=== PATIENT | male | born 1975 | race Caucasian/White ===

== ENCOUNTER 2018-06-18 16:24 | Inpatient (IN) | payer OTHER ==
[2018-06-18 16:43] VITALS: BMI 29.5
--- NOTE | 2018-06-18 16:48 | PDOC ---
Rapid Medical Evaluation Chief Complaint: Pain, Acute Time Seen by Provider: 06/18/18 16:41 Medical Evaluation: Allergies Allergy/AdvReac Type Severity Reaction Status Date / Time cat dander Allergy Verified 06/18/18 16:44 Vital Signs Temp Pulse Resp BP Pulse Ox 99.2 F 106 H 18 124/77 100 06/18/18 16:41 06/18/18 16:41 06/18/18 16:41 06/18/18 16:41 06/18/18 16:41 06/18/18 16:45 I have performed a brief in-person evaluation of this patient. The patient presents with a chief complaint of: sent by PCP to r/o epi. Pt with 3 days h/o fredrick-umbilical and RLQ pain x 3 days with fever. Denies N/V, diarrhea , constipation. report labs done in PCP office today at clinic at [facility] Pertinent physical exam findings: mild RLQ tenderness w/o gaurding. no acute distress I have ordered the following: abd/pelvis CT The patient will proceed to the ED for further evaluation. Discharge Disposition - Diagnosis Abdominal pain Qualifiers: Abdominal location: right lower quadrant Qualified Code(s): R10.31 - Right lower quadrant pain - Discharge Dispostion Condition at time of disposition: Stable - Referrals Referrals: Jesus Lang MD [Primary Care Provider] - - Patient Instructions - Post Discharge Activity
[2018-06-18] MEDS ORDERED: SODIUM CHLORIDE 1,000 ML IV STA (17:29)
[2018-06-18] MEDS ORDERED: ACETAMINOPHEN 1000 MG/100 ML VIAL (NON FORMULARY) IVPB ONE (17:29)
[2018-06-18] MEDS ORDERED: ACETAMINOPHEN INJECTION 100 ML IVPB ONE (17:39)
[2018-06-18 18:11] LABS: HEMATOCRIT 42.4 % (35.4-49); HEMOGLOBIN 14.3 GM/dL (11.7-16.9); MCHC 33.7 g/dl (32.0-35.9); MEAN PLT VOLUME 10.4 fl (7.5-11.1); PLATELET COUNT 195 K/MM3 (134-434); RBC 4.77 M/mm3 (4.00-5.60); RDW 13.9 % (11.9-15.9); WHITE BLOOD COUNT 13.6 K/mm3 (4.0-10.0)
--- NOTE | 2018-06-18 18:13 | PDOC ---
Attending Attestation - HPI HPI: 06/18/18 18:14 The patient is a 43 year old male, with a significant past medical history of palpitations and HLD, who presents to the emergency department with, 3 days of suprapubic pain now radiating to the RLQ with fever. Patient saw his PCP, Dr. Lang, prior to his arrival at which time he received bloodwork and was advised to report to the ED for a CT scan of the abdomen. He denies any testicular pain or penile discharge. He denies any recent headache or dizziness. He denies any recent nausea, vomit, diarrhea or constipation. He denies any recent chest pain or shortness of breath. He denies any recent dysuria, frequency, urgency or hematuria. Allergies: NKDA Past surgical history: None reported. Social History: Nonsmoker. Denies EtOH use and recreational drug use. Primary Care Physician: Dr. Jesus Lang <Jamil Ruiz - Last Filed: 06/18/18 18:15> - Resident Resident Name: Patricia Harris - ED Attending Attestation I have performed the following: I have examined & evaluated the patient, The case was reviewed & discussed with the resident, I agree w/resident's findings & plan, Exceptions are as noted - Physicial Exam PE: 06/18/18 19:57 exam: general: no acute distress abd: +rebound/ voluntary guarding, diffuse ttp lower abd - Medical Decision Making 06/18/18 18:11 43y pmhx palpitations, HL, presents from PMDs office for worsening 2 days of abdominal pain that is pressure like radiating to the RLQ, endorses associated fever/chills. As outpatient, had blood work with elevated WBC of 12. exam consistent withfocal peritonitis ddx likely appendicitis vs diverticulitis 06/18/18 19:57 ct suggestive of acute diverticulitis will start abx as pts pain is controlled,consider outpatient management with abx <Kurt Fernandez - Last Filed: 06/18/18 20:49> Attestations - Attestations 06/18/18 18:15 Documentation prepared by Jamil Ruiz, acting as medical educator for Kurt Fernandez MD. <Jamil Ruiz - Last Filed: 06/18/18 18:15>
[2018-06-18 18:23] LABS: INR 1.13 (0.83-1.09); PROTHROMBIN TIME (PATIENT) 13.4 SEC (9.7-13.0)
[2018-06-18 18:28] LABS: ALBUMIN 3.9 g/dl (3.4-5.0); ALK PHOS 74 U/L (45-117); ANION GAP 10 MMOL/L (8-16); BILIRUBIN,TOTAL 0.6 mg/dL (0.2-1); BLOOD UREA NITROGEN 23 mg/dL (7-18); CALCIUM 9.1 mg/dL (8.5-10.1); CHLORIDE 107 mmol/L (98-107); CO2 23 mmol/L (21-32); GLUCOSE,RANDOM 112 mg/dL (74-106); POTASSIUM 3.8 mmol/L (3.5-5.1); SGOT/AST 8 U/L (15-37); SGPT/ALT 24 U/L (13-61); SODIUM 139 mmol/L (136-145); TOT PROT 7.4 g/dl (6.4-8.2)
--- NOTE | 2018-06-18 18:29 | PDOC ---
History of Present Illness - General Chief Complaint: Pain, Acute Stated Complaint: PCP REFERRED Time Seen by Provider: 06/18/18 16:41 History Source: Patient Exam Limitations: No Limitations - History of Present Illness Initial Comments: Pt is a 43 yo M, with PMH of "palpitations" (with implanted heart monitor and on metoprolol), and HLD (, who is presenting with complaints of lower abdominal pain x2 days. Pt states the pain started the night before last, with associated subjective fevers and chills. Pt states the pain is constant and pressure-like, and initially started in the "area around my belly button". Starting today, the pain began to move towards his RLQ. He went to see his PCP (Dr. Lang) in clinic today, who sent him to [facility] for further evaluation and possible CT scan. Pt has been able to tolerate PO food and fluid intake. Pt denies any headache, vision changes, syncope, chest pain, palpitations, SOB, nausea/vomiting, urinary symptoms, diarrhea/constipation, or leg swelling. In clinic, pt had elevated WBC (12.5) and elevated BUN (27/0.9). Social: Pt denies any cigarette, alcohol, or drug use. Pt denies any recent travel or sick contacts. Surgical: heart monitor placement. Family: no relevant history, no appendicitis or kidney stones. 06/18/18 18:56 Past History - Travel Traveled outside of the country in the last 30 days: No Close contact w/someone who was outside of country & ill: No - Past Medical History Allergies/Adverse Reactions: Allergies Allergy/AdvReac Type Severity Reaction Status Date / Time cat dander Allergy Verified 06/18/18 16:44 Home Medications: Ambulatory Orders NK [No Known Home Medication] 06/18/18 Cardiac Disorders: Yes ("palpitations" with implanted monitor) COPD: No Dementia: No HTN: No Hypercholesterolemia: Yes Psychiatric Problems: No - Surgical History Abdominal Surgery: No Appendectomy: No Cholecystectomy: No GI Surgery: No - Immunization History Immunization Up to Date: No - Suicide/Smoking/Psychosocial Hx Smoking History: Unknown if ever smoked Have you smoked in the past 12 months: No Information on smoking cessation initiated: No Hx Alcohol Use: No Drug/Substance Use Hx: No Review of Systems - Review of Systems Able to Perform ROS?: Yes Is the patient limited Persian proficient: No Constitutional: Yes: Chills, Diaphoresis, Fever, Weight Stable. No: Loss of Appetite, Malaise, Weakness HEENTM: No: Blurred Vision, Double Vision, Nose Pain, Nose Congestion, Throat Pain, Throat Swelling Respiratory: No: Cough, Orthopnea, Shortness of Breath Cardiac (ROS): No: Chest Pain, Irregular Heart Rate, Lightheadedness, Palpitations (history of palpitations, controlled with metoprolol, not active), Syncope, Chest Tightness ABD/GI: Yes: See HPI, Abdominal cramping. No: Abdominal Distended, Abd. Pain w / defecation, Blood Streaked Bowels, Constipated, Diarrhea, Difficulty Swallowing, Nausea, Poor Appetite, Poor Fluid Intake, Rectal Bleeding, Vomiting : No: Burning, Dysuria, Frequency, Flank Pain, Pain, Urgency, Testicular Swelling, Testicular Pain Musculoskeletal: No: Back Pain, Joint Pain, Muscle Weakness Integumentary: No: Rash, Sweating Neurological: No: Headache, Weakness, Ataxia, Dizziness Psychiatric: No: Sleep Pattern Change, Change in Appetite Endocrine: No: Increased Urine, Change in Weight Hematologic/Lymphatic: No: Anemia, Blood Clots, Easy Bleeding, Easy Bruising All Other Systems: Reviewed and Negative *Physical Exam - Vital Signs Last Vital Signs Temp Pulse Resp BP Pulse Ox 99.2 F 106 H 18 124/77 100 06/18/18 16:41 06/18/18 16:41 06/18/18 16:41 06/18/18 16:41 06/18/18 16:41 - Physical Exam Comments: HR 106, pt afebrile (99.2). Pt in NAD, but mildly diaphoretic. Normal body habitus. Pt alert and oriented. 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 Head normocephalic, atraumatic. Eyes PERRLA, EOMI. Oropharynx without erythema or exudates, no LAD b/l. No nasal congestion, hearing intact. Clear heart sounds, S1/S2, no JVD, b/l pedal edema, or heart murmur. Clear lung sounds, no respiratory distress, wheezes, crackles, or accessory muscle use. RLQ tenderness to palpation with rebound (tenderness in RLQ when pressing in LLQ ). No CVA tenderness. Abdomen soft, non-distended, and with normoactive bowel sounds. Skin without jaundice or rash. 06/18/18 18:24 ED Treatment Course - LABORATORY CBC & Chemistry Diagram: 06/18/18 17:56 06/18/18 17:56 - ADDITIONAL ORDERS Additional order review: Laboratory Results 06/18/18 06/18/18 17:56 17:56 PT with INR 13.40 H INR 1.13 H Lipase 131 06/18/18 17:56 RBC 4.77 MCV 89.0 MCHC 33.7 RDW 13.9 MPV 10.4 - RADIOLOGY Radiology Studies Ordered: Category Date Time Status ABDOMEN & PELVIS CT WITH CONTR [CT] Stat CT Scan 06/18/18 16:43 Ordered - Medications Given in the ED: ED Medications Discontinued Medications Generic Name Dose Route Start Last Admin Trade Name Frefacundo PRN Reason Stop Dose Admin Acetaminophen 1,000 mg 06/18/18 17:29 06/18/18 17:58 Ofirmev Injection - IVPB 06/18/18 17:30 1,000 mg ONCE ONE Administration Medical Decision Making - Medical Decision Making Pt was seen at bedside, also will be seen by attending Dr. Fernandez. Pt presenting with complaints of lower abdominal pain x2 days. Pt states the pain started the night before last, with associated subjective fevers and chills. Pt states the pain is constant and pressure-like, and initially started in the "area around my belly button". Starting today, the pain began to move towards his RLQ. He went to see his PCP (Dr. Lang) in clinic today, who sent him to [facility] for further evaluation and possible CT scan. Pt has been able to tolerate PO food and fluid intake. Pt denies any headache, vision changes, syncope, chest pain, palpitations, SOB, nausea/vomiting, urinary symptoms, diarrhea/constipation, or leg swelling. In clinic, pt had elevated WBC (12.5) and elevated BUN (27/0.9). Ordered work-up including repeat complete blood count, CMP, lipase, type and screen, coags, ECG (pre-op labs), and CT abd/pelvis with IV contrast. Provided 1 L IV NS and 1 g IV ofirmev for improvement of pain and hydration. Will continue to reassess pt and monitor for symptomatic improvement. Pt taken for CT scan (abd/pelvis with IV contrast). 06/18/18 18:30 Pt abdominal pain not improved with ofirmev, providing 4 mg IV morphine. 06/18/18 18:[address] scan. Signed out to night team (Dr. Jacobs). 06/18/18 19:07 *DC/Admit/Observation/Transfer Diagnosis at time of Disposition: Abdominal pain Qualifiers: Abdominal location: right lower quadrant Qualified Code(s): R10.31 - Right lower quadrant pain - Discharge Dispostion Condition at time of disposition: Stable - Referrals Referrals: Jesus Lang MD [Primary Care Provider] - - Patient Instructions - Post Discharge Activity
[2018-06-18] MEDS ORDERED: morphine CARPU-JECT 4 MG/1 ML DISP.SYRIN IVPUSH ONE ×2 (18:51→22:12)
[2018-06-18] MEDS ORDERED: morphine SULFATE 4 MG/ML VIAL ONE ×2 (19:16→22:14)
--- NOTE | 2018-06-18 20:41 | PDOC ---
*Physical Exam - Vital Signs Last Vital Signs Temp Pulse Resp BP Pulse Ox 99.2 F 106 H 18 124/77 100 06/18/18 16:41 06/18/18 16:41 06/18/18 16:41 06/18/18 16:41 06/18/18 16:41 <Amador Jacobs - Last Filed: 06/18/18 20:57> - Vital Signs Last Vital Signs Temp Pulse Resp BP Pulse Ox 98.7 F 75 18 106/66 96 06/20/18 05:50 06/20/18 05:50 06/20/18 05:50 06/20/18 05:50 06/19/18 21:00 <Kurt Fernandez - Last Filed: 06/20/18 07:38> ED Treatment Course - LABORATORY CBC & Chemistry Diagram: 06/18/18 17:56 06/18/18 17:56 - ADDITIONAL ORDERS Additional order review: Laboratory Results 06/18/18 06/18/18 06/18/18 17:56 17:56 17:56 PT with INR 13.40 H INR 1.13 H Sodium Potassium Chloride Carbon Dioxide Anion Gap BUN Creatinine Creat Clearance w eGFR Random Glucose Calcium Total Bilirubin AST ALT Alkaline Phosphatase Total Protein Albumin Lipase 131 Blood Type O POSITIVE Antibody Screen Negative 06/18/18 17:56 PT with INR INR Sodium 139 Potassium 3.8 Chloride 107 Carbon Dioxide 23 Anion Gap 10 BUN 23 H Creatinine 1.0 Creat Clearance w eGFR 81.17 Random Glucose 112 H Calcium 9.1 Total Bilirubin 0.6 AST 8 L ALT 24 Alkaline Phosphatase 74 Total Protein 7.4 Albumin 3.9 Lipase Blood Type Antibody Screen 06/18/18 17:56 RBC 4.77 MCV 89.0 MCHC 33.7 RDW 13.9 MPV 10.4 - Medications Given in the ED: ED Medications Discontinued Medications Generic Name Dose Route Start Last Admin Trade Name Freq PRN Reason Stop Dose Admin Acetaminophen 1,000 mg 06/18/18 17:29 06/18/18 17:58 Ofirmev Injection - IVPB 06/18/18 17:30 1,000 mg ONCE ONE Administration Sodium Chloride 1,000 mls @ 1,000 mls/hr 06/18/18 17:29 06/18/18 17:58 Normal Saline - IV 06/18/18 18:28 1,000 mls/hr ASDIR STA Administration Morphine Sulfate 4 mg 06/18/18 18:51 06/18/18 19:20 Morphine Injection - IVPUSH 06/18/18 18:52 4 mg ONCE ONE Administration <Amador Jacobs - Last Filed: 06/18/18 20:57> - LABORATORY CBC & Chemistry Diagram: 06/19/18 06:00 06/19/18 06:00 - ADDITIONAL ORDERS Additional order review: 06/18/18 20:46 Blood Culture - Preliminary Blood - Peripheral Venous NO GROWTH OBTAINED AFTER 24 HOURS, INCUBATION TO CONTINUE FOR 4 DAYS. 06/18/18 20:46 Blood Culture - Preliminary Blood - Peripheral Venous NO GROWTH OBTAINED AFTER 24 HOURS, INCUBATION TO CONTINUE FOR 4 DAYS. 06/18/18 17:56 RBC 4.77 MCV 89.0 MCHC 33.7 RDW 13.9 MPV 10.4 - Medications Given in the ED: ED Medications Discontinued Medications Generic Name Dose Route Start Last Admin Trade Name Juan Ramonq PRN Reason Stop Dose Admin Acetaminophen 1,000 mg 06/18/18 17:29 06/18/18 17:58 Ofirmev Injection - IVPB 06/18/18 17:30 1,000 mg ONCE ONE Administration Sodium Chloride 1,000 mls @ 1,000 mls/hr 06/18/18 17:29 06/18/18 17:58 Normal Saline - IV 06/18/18 18:28 1,000 mls/hr ASDIR STA Administration Metronidazole 500 mg in 100 mls @ 100 mls/hr 06/18/18 19:58 06/18/18 20:35 Flagyl 500mg Premixed Ivpb - IVPB 06/18/18 20:57 100 mls/hr ONCE ONE Administration Levofloxacin 750 mg in 150 mls @ 100 mls/hr 06/18/18 19:58 06/18/18 20:44 Levaquin 750 Mg Premixed Ivpb - IVPB 06/18/18 21:27 100 mls/hr ONCE ONE Administration Protocol Morphine Sulfate 4 mg 06/18/18 18:51 06/18/18 19:20 Morphine Injection - IVPUSH 06/18/18 18:52 4 mg ONCE ONE Administration Morphine Sulfate 4 mg 06/18/18 22:12 06/18/18 22:25 Morphine Injection - IVPUSH 06/18/18 22:13 4 mg ONCE ONE Administration <Kurt Fernandez - Last Filed: 06/20/18 07:38> Medical Decision Making - Medical Decision Making 06/18/18 20:57 Ct positive for Sigmoid diverticulitis with significant stranding and microperforations. No abcesses. Spoke to Dr. 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 Will admit due to microperforations and wishes of Dr. Zuñiga. <Amador Jacobs - Last Filed: 06/18/18 20:57> *DC/Admit/Observation/Transfer - Discharge Dispostion Decision to Admit order: Yes <Amador Jacobs - Last Filed: 06/18/18 20:57> <Kurt Fernandez - Last Filed: 06/20/18 07:38> Diagnosis at time of Disposition: Acute diverticulitis
[2018-06-18] MEDS ORDERED: ACETAMINOPHEN 325 MG TABLET (FP) PO PRN (23:55)
[2018-06-19] MEDS: morphine SULFATE 4 MG/ML VIAL IVPUSH PRN ×4 (00:38→17:31)
[2018-06-19 07:35] LABS: HEMATOCRIT 39.8 % (35.4-49); HEMOGLOBIN 13.4 GM/dL (11.7-16.9); MCH 29.8 pg (25.7-33.7); MCHC 33.7 g/dl (32.0-35.9); MEAN CELL VOLUME 88.4 fl (80-96); MEAN PLT VOLUME 9.9 fl (7.5-11.1); PLATELET COUNT 186 K/MM3 (134-434); RDW 13.7 % (11.9-15.9); WHITE BLOOD COUNT 11.1 K/mm3 (4.0-10.0)
[2018-06-19 08:08] LABS: ALBUMIN 3.4 g/dl (3.4-5.0); ALK PHOS 56 U/L (45-117); ANION GAP 7 MMOL/L (8-16); BILIRUBIN,TOTAL 0.6 mg/dL (0.2-1); BLOOD UREA NITROGEN 18 mg/dL (7-18); CALCIUM 8.6 mg/dL (8.5-10.1); CHLORIDE 104 mmol/L (98-107); CO2 25 mmol/L (21-32); CREATININE 0.7 mg/dL (0.55-1.3); GLUCOSE,RANDOM 100 mg/dL (74-106); SGOT/AST 10 U/L (15-37); SGPT/ALT 19 U/L (13-61); SODIUM 135 mmol/L (136-145); TOT PROT 6.8 g/dl (6.4-8.2)
--- NOTE | 2018-06-19 10:23 | EKG ---
Test Reason : Blood Pressure : / mmHG Vent. Rate : 090 BPM Atrial Rate : 090 BPM P-R Int : 148 ms QRS Dur : 088 ms QT Int : 344 ms P-R-T Axes : 045 020 155 degrees QTc Int : 420 ms NORMAL SINUS RHYTHM POSSIBLE LEFT ATRIAL ENLARGEMENT ABNORMAL ECG NO PREVIOUS ECGS AVAILABLE Confirmed by LEYDI LUNDY, RIYA ([id number]) on 06/19/2018 10:22:54 AM Referred By: Confirmed By:RIYA HOLLEY MD
--- NOTE | 2018-06-19 10:35 | HP ---
Admitting History and Physical - Primary Care Physician PCP: Jesus Lang - Admission Chief Complaint: abd pain History of Present Illness: Pt with lower abd pain, midline and RLQ, for 2 days, fever and chills and at home, seen in the office and sent to ER yesterday for abd CT scan, ( + for acute sigmoid diverticulitis).. 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 Cardiovascular: Yes: HTN - Smoking History Smoking history: Former smoker Have you smoked in the past 12 months: No - Alcohol/Substance Use Hx Alcohol Use: No Home Medications - Allergies Allergies/Adverse Reactions: Allergies Allergy/AdvReac Type Severity Reaction Status Date / Time cat dander Allergy Verified 06/18/18 16:44 - Home Medications Home Medications: Ambulatory Orders Ezetimibe [Zetia] 10 mg PO DAILY 06/19/18 Metoprolol Tartrate 75 mg PO DAILY 06/19/18 Review of Systems - Review of Systems Constitutional: denies: Chills (now), Fever (now) Eyes: denies: Blurred Vision, Double Vision HENT: denies: Difficult Swallowing, Ear Discharge, Nasal Congestion Neck: denies: Pain on Movement, Stiffness Cardiovascular: denies: Chest Pain, Edema, Palpitations Respiratory: reports: Cough, SOB on Exertion. denies: SOB Gastrointestinal: reports: Abdominal Pain (better with Morphine), Diarrhea. denies: Constipation, Nausea, Vomiting Genitourinary: denies: Discharge, Dysuria (today) Musculoskeletal: denies: Back Pain, Muscle Pain Integumentary: denies: Bruising, Pruritis Endocrine: denies: Excessive Sweating, Intolerance to Cold Hematology/Lymphatic: denies: Easily Bruised, Excessive Bleeding Psychiatric: denies: Anxiety, Depression Physical Examination Vital Signs: Vital Signs Temperature 98.4 F 06/19/18 06:00 Pulse Rate 93 H 06/19/18 06:00 Respiratory Rate 93 H 06/19/18 06:00 Blood Pressure 103/54 L 06/19/18 06:00 O2 Sat by Pulse Oximetry (%) 98 06/19/18 03:07 Constitutional: Yes: No Distress, Calm Eyes: Yes: Conjunctiva Clear, EOM Intact, PERRL HENT: Yes: Normocephalic. No: Epistaxis, Rhinnorhea Neck: Yes: Trachea Midline. No: Lymphadenopathy Cardiovascular: Yes: Regular Rate and Rhythm, S1, S2 Respiratory: Yes: Regular, CTA Bilaterally. No: Rales Gastrointestinal: Yes: Normal Bowel Sounds, Soft. No: Tenderness ...Rectal Exam: Yes: Deferred Renal/: No: CVA Tenderness - Left, CVA Tenderness - Right Extremities: No: Cold, Cool, Erythema Edema: No Neurological: Yes: Alert, Oriented Labs: CBC, BMP 06/19/18 06:00 06/19/18 06:00 Imaging - Results Cat Scan: Report Reviewed Problem List - Problems (1) Acute diverticulitis Assessment/Plan: with microperforations Code(s): K57.92 - DVTRCLI OF INTEST, PART UNSP, W/O PERF OR ABSCESS W/O BLEED (2) Abdominal pain Code(s): R10.9 - UNSPECIFIED ABDOMINAL PAIN Qualifiers: Abdominal location: right lower quadrant Qualified Code(s): R10.31 - Right lower quadrant pain (3) CVA (cerebral vascular accident) Code(s): I63.9 - CEREBRAL INFARCTION, UNSPECIFIED (4) HTN (hypertension) Code(s): I10 - ESSENTIAL (PRIMARY) HYPERTENSION Assessment/Plan IV abts Pain controlled Clear liquid GI consult AM labs
--- NOTE | 2018-06-19 11:23 | CONSULT ---
Consult Consult Specialty:: General Surgery Reason for Consultation:: sigmoid diverticulitis - History of Present Illness Chief Complaint: abdominal pain History of Present Illness: 43 yo male PMH obesity, palpitations?, HLD who presents to the emergency department with, 3 days of suprapubic pain now radiating to the RLQ with fever. Patient saw his PCP, Dr. Lang, prior to his arrival at which time he received bloodwork and was advised to report to the ED for a CT scan of the abdomen. we were called to assess. 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 denies: Chills Eyes: denies: Blind Spots, Recent Change in Vision HENT: denies: Difficult Swallowing, Toothache Neck: denies: Decreased ROM, Tenderness Cardiovascular: denies: Chest Pain, Palpitations Respiratory: denies: Cough, SOB Gastrointestinal: reports: Abdominal Pain. denies: Constipation, Diarrhea, Nausea Genitourinary: denies: Burning, Discharge, Dysuria Musculoskeletal: denies: Back Pain, Muscle Pain Integumentary: denies: Lesions, Lump, Pallor Neurological: denies: Seizure, Syncope Endocrine: denies: Unexplained Weight Gain, Unexplained Weight Loss Hematology/Lymphatic: denies: Easily Bruised, Excessive Bleeding Psychiatric: denies: Anxiety, Depression Physical Exam Vital Signs: Vital Signs Temperature 98.4 F 06/19/18 06:00 Pulse Rate 93 H 06/19/18 06:00 Respiratory Rate 93 H 06/19/18 06:00 Blood Pressure 103/54 L 06/19/18 06:00 O2 Sat by Pulse Oximetry (%) 98 06/19/18 03:07 Constitutional: Yes: Well Nourished, No Distress, Calm Eyes: Yes: Conjunctiva Clear, EOM Intact HENT: Yes: Atraumatic, Normocephalic Neck: Yes: Supple, Trachea Midline Cardiovascular: Yes: Regular Rate and Rhythm, S1, S2 Respiratory: Yes: Regular, CTA Bilaterally Gastrointestinal: Yes: Normal Bowel Sounds, Soft, Abdomen, Obese, Tenderness ( LLQ). No: Tenderness, Epigastrium, Tenderness, Rebound ...Rectal Exam: Yes: Deferred Renal/: No: CVA Tenderness - Left, CVA Tenderness - Right Breast(s): No: Discharge from Nipple, Nipple Inversion Musculoskeletal: No: Muscle Pain, Muscle Weakness Extremities: No: Cool, Cyanosis Edema: No Peripheral Pulses WNL: Yes Neurological: Yes: Alert, Oriented Psychiatric: Yes: Alert, Oriented Labs: CBC, BMP 06/19/18 06:00 06/19/18 06:00 Imaging - Results Cat Scan: Report Reviewed, Image Reviewed (lower center abdomen sigmoid diverticulitis) Problem List - Problems (1) Sigmoid diverticulitis Assessment/Plan: 43 yo male with sigmoid diverticulits confirmed on imaging, first espisode uncomplicated NPO and IVF hydration IV antibiotics ID consult for home regimen GI evaluation for colonoscopy in 6-8 weeks no surgical follow up needed at this time - discussed options if persistent or recurrent will follow peripherally Thank you for the opportunity to participate in the care of this patient. Code(s): K57.32 - DVTRCLI OF LG INT W/O PERFORATION OR ABSCESS W/O BLEEDING (2) Acute diverticulitis Code(s): K57.92 - DVTRCLI OF INTEST, PART UNSP, W/O PERF OR ABSCESS W/O BLEED (3) CVA (cerebral vascular accident) Code(s): I63.9 - CEREBRAL INFARCTION, UNSPECIFIED (4) HTN (hypertension) Code(s): I10 - ESSENTIAL (PRIMARY) HYPERTENSION
--- NOTE | 2018-06-19 11:35 | CON.GI ---
Consult Consult Specialty:: GI Referred by:: Dr. Jesus Lang Reason for Consultation:: Acute diverticulitis - History of Present Illness Chief Complaint: pelvic pain History of Present Illness: 43M admitted for evaluation of progressive pelvic pain, pressure, fever and chills. Complaits started friday with chills. body aches. he then began experiencing progressive pelvic and lower left sided abdominal pain prompting ER evaluation. He dednied similar pain complaintsin the past hoewver noted pelvic pressure and passage of bright red blood after bowel movements 2 months ago while on vacation. He did not sek treatment at that time and was not on antibiotics. He still noted red blood after bowel movements, the last time being about 1 week ago. He denies diarhea or constipation. CT scan of the A/P performed with PO and IV contrast revelaed changed c/w acute diverticulitis of the mid sigmoid colon, extraluminal pockets of air adjacent to the colon and thickening of the tip of appendix suspected to be secondary to adjacent inflammation from the sigmoid. He has never had an upper endoscopy or colonoscopy. His mother may have a history of a large colon polyp (? CIS or unresectable endoscopically) thet led to colon resection, colostoy and reversal of colostomy. 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 Place of : Other ([place]) Came to [place]year[place] 1994 History of Recent Travel: Yes Home Medications - Allergies Allergies/Adverse Reactions: Allergies Allergy/AdvReac Type Severity Reaction Status Date / Time cat dander Allergy Verified 06/18/18 16:44 - Home Medications Home Medications: Ambulatory Orders Ezetimibe [Zetia] 10 mg PO DAILY 06/19/18 Metoprolol Tartrate 75 mg PO DAILY 06/19/18 Family Disease History - Family Disease History Family Disease History: Other: Father (Alive: healthy), Mother (Alive: hx as in HPI (? colon polyp leading to resection, colostomy and reversal)), Brother (2, healthy), Son (1, healthy), Daughter (1, heatlhy) Review of Systems - Review of Systems Constitutional: reports: Chills, Fever, Malaise Cardiovascular: denies: Chest Pain Respiratory: denies: Cough Gastrointestinal: reports: Abdominal Pain, Rectal Bleeding. denies: Constipation, Diarrhea, Melena, Vomiting Blood Genitourinary: denies: Burning Physical Exam-GI Vital Signs: Vital Signs Temperature 98.4 F 06/19/18 06:00 Pulse Rate 93 H 06/19/18 06:00 Respiratory Rate 93 H 06/19/18 06:00 Blood Pressure 103/54 L 06/19/18 06:00 O2 Sat by Pulse Oximetry (%) 98 06/19/18 03:07 Constitutional: Yes: Calm Eyes: No: Sclera Icterus Cardiovascular: Yes: Regular Rate and Rhythm Respiratory: Yes: CTA Bilaterally Gastrointestinal Inspection: No: Distention, Scars ...Auscultate: Yes: Normoactive Bowel Sounds ...Palpate: Yes: Soft, Tenderness (suprapubic TTP, LLQ TTP with voluntary guarding. Mild TTP RLQ) ...Percussion: No: Tympanitic ...Rectal Exam: Yes: Other (No external lesions, no masses, no stool. Prostate not palpated as patient unable to fully cooperate with exam.) Edema: No (No LE edema) Neurological: Yes: Alert Labs: CBC, BMP 06/19/18 06:00 06/19/18 06:00 INR, PTT INR 1.13 (0.83-1.09) H 06/18/18 17:56 Hepatic Panel Total Bilirubin 0.6 mg/dL (0.2-1) 06/19/18 06:00 AST 10 U/L (15-37) L 06/19/18 06:00 ALT 19 U/L (13-61) 06/19/18 06:00 Alkaline Phosphatase 56 U/L (45-117) 06/19/18 06:00 Albumin 3.4 g/dl (3.4-5.0) 06/19/18 06:00 Imaging - Results Cat Scan: Report Reviewed, Image Reviewed Problem List - Problems (1) Acute diverticulitis Assessment/Plan: 1st episode of acute sigmoid diverticulitis with localized perforation given adjacent extraluminal free air. Still with voluntary guarding in exam: Advise: NPO for now until pain and guarding improved IV hydration IV Abx ID consult called Surgery consult called Patient to follow-up in office. explained that he will need colonoscopy in 6-8 weeks for follow-up in order to exclude alternate pathology AM labs ordered Code(s): K57.92 - DVTRCLI OF INTEST, PART UNSP, W/O PERF OR ABSCESS W/O BLEED
[2018-06-19] MEDS: DEXTROSE 5%-NORMAL SALINE 1,000 ML IV SCH (13:52)
--- NOTE | 2018-06-19 13:58 | PN ---
Progress Note (short form) - Note Progress Note: ID consult dictated imp/reccd 43 yo man admitted with abdominal pain and bloody stools ct scan c/w acute diverticulitis with microperforation no history of pror hospitalizations no prior antibiotics +bloody stools intermittently for last several months flagyl/ceftriaxone ivf GI following d/w at bedside Problem List - Problems (1) Acute diverticulitis Code(s): K57.92 - DVTRCLI OF INTEST, PART UNSP, W/O PERF OR ABSCESS W/O BLEED
--- NOTE | 2018-06-19 14:29 | CONS ---
DATE OF CONSULTATION: DATE OF DICTATION: 06/19/2018 This is a 43-year-old man, past medical history of hypertension, hyperlipidemia. He was sent to the emergency room by Dr. Lang with abdominal pain and sensation of fevers and chills at home for the last several days. He has had intermittent blood in his stool which he has had for the last several years. He was last on vacation about 6 weeks ago. He denies any diarrhea or constipation. He had a CAT scan done in the emergency room that showed acute diverticulitis with probable microperforation. He had extraluminal pockets of air adjacent to the colon. He denies any weight loss. He otherwise feels well. PAST MEDICAL HISTORY: Notable for hypertension, hyperlipidemia, palpitations. PAST SURGICAL HISTORY: He has had 2 hernia repairs, and he has an implanted cardiac event monitor. SOCIAL HISTORY: He is . He has 2 children who are 8 years old. He has twins. [facility] 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 SMOKING HISTORY: He smokes electronic cigarettes. ALLERGIES: He is allergic to CAT DANDER. MEDICATIONS: He takes Zetia and metoprolol as an outpatient. FAMILY HISTORY: Notable for colon surgery in his mother, it is unclear why, and otherwise his family is healthy. REVIEW OF SYSTEMS: Notable for the chills and the abdominal pain which he reports is improved. PHYSICAL EXAMINATION: Vital Signs: Temperature is 98.4. T-max was 99.2. Pulse of 93, blood pressure 103/54. Respiratory rate is 17. He is saturating 98%. He weighs 111 kg. HEENT: He is normocephalic. His eyes are anicteric. Neck: Supple. Lungs: Clear to auscultation. Heart: Regular rate and rhythm. Abdomen: Soft. He has bowel sounds. He has some lower abdominal pain, right greater than left. Extremities: Without edema. He has no rash. LABORATORY: White count is 11.1. It was 13.6 yesterday. Hemoglobin 13.4, platelets are 186. INR is 1.1. BUN and creatinine are 18 and 0.7. Normal LFTs. Lipase is 131. Blood cultures are pending. CAT scan imaging is notable for acute diverticulitis in the midsigmoid colon, with significant surrounding mesenteric stranding and edema, with multiple extraluminal air pockets without evidence of an abscess. SUMMARY: This is a 43-year-old man who has not had any recent antibiotics. He has not been hospitalized, admitted with his first episode of acute diverticulitis with what appears to be a microperforation. Would suggest we treat him with ceftriaxone and Flagyl for now. Cultures are pending. He is receiving IV fluids and analgesics, with further recommendations to follow. CORNEL VELASQUEZ M.D. [id number]
[2018-06-19] MEDS ORDERED: DEXTROSE 5%-WATER 100 ML IVPB ONE (17:10)
[2018-06-19] MEDS: CEFTRIAXONE 2 GM in DEXTROSE 5%-WATER 100 ML IVPB SCH (17:32)
[2018-06-19] MEDS: METOPROLOL TARTRATE 50 MG TABLET (FP) PO SCH (21:02)
[2018-06-19] MEDS: ZOLPIDEM TARTRATE 5 MG TABLET PO PRN (22:21)
[2018-06-20] MEDS: DEXTROSE 5%-NORMAL SALINE 1,000 ML IV SCH ×2 (01:07→14:34)
[2018-06-20 08:04] LABS: HEMATOCRIT 38.1 % (35.4-49); HEMOGLOBIN 12.9 GM/dL (11.7-16.9); MCH 29.8 pg (25.7-33.7); MCHC 33.9 g/dl (32.0-35.9); MEAN PLT VOLUME 9.7 fl (7.5-11.1); PLATELET COUNT 193 K/MM3 (134-434); RBC 4.33 M/mm3 (4.00-5.60); RDW 13.5 % (11.9-15.9); WHITE BLOOD COUNT 7.7 K/mm3 (4.0-10.0)
[2018-06-20 08:34] LABS: ALBUMIN 3.2 g/dl (3.4-5.0); ALK PHOS 49 U/L (45-117); ANION GAP 6 MMOL/L (8-16); BILIRUBIN,TOTAL 0.4 mg/dL (0.2-1); BLOOD UREA NITROGEN 15 mg/dL (7-18); CALCIUM 8.1 mg/dL (8.5-10.1); CHLORIDE 106 mmol/L (98-107); CO2 28 mmol/L (21-32); CREATININE 0.8 mg/dL (0.55-1.3); GLUCOSE,RANDOM 122 mg/dL (74-106); SGOT/AST 8 U/L (15-37); SGPT/ALT 15 U/L (13-61); SODIUM 140 mmol/L (136-145); TOT PROT 6.2 g/dl (6.4-8.2)
[2018-06-20] MEDS ORDERED: DEXTROSE 5%-WATER 100 ML IVPB ONE (10:18)
[2018-06-20] MEDS: METOPROLOL TARTRATE 50 MG TABLET (FP) PO SCH ×2 (10:28→21:22)
[2018-06-20] MEDS: CEFTRIAXONE 2 GM in DEXTROSE 5%-WATER 100 ML IVPB SCH (10:29)
[2018-06-20] MEDS: morphine SULFATE 4 MG/ML VIAL IVPUSH PRN ×3 (10:29→22:00)
--- NOTE | 2018-06-20 11:18 | PN ---
Progress Note, Physician History of Present Illness: 43 yo male PMH obesity, palpitations?, HLD who presents to the emergency department with, 3 days of suprapubic pain now radiating to the RLQ with fever. stable since admission and abdominal pain is improving . - Current Medication List Current Medications: Active Medications Acetaminophen (Tylenol -) 650 mg PO Q6H PRN PRN Reason: FEVER/PAIN LEVEL 1-5 Metronidazole (Flagyl 500mg Premixed Ivpb -) 500 mg in 100 mls @ 100 mls/hr IVPB Q6H-IV FRAN Last Admin: 06/20/18 08:48 Dose: 100 mls/hr Dextrose/Sodium Chloride (D5-Ns -) 1,000 mls @ 100 mls/hr IV ASDIR FRAN Last Admin: 06/20/18 01:07 Dose: 100 mls/hr Ceftriaxone Sodium 2 gm/ (Dextrose) 100 mls @ 200 mls/hr IVPB DAILY [facility]AN; Protocol Last Admin: 06/20/18 10:29 Dose: 200 mls/hr Metoprolol Tartrate (Lopressor -) 50 mg PO BID FRAN Last Admin: 06/20/18 10:28 Dose: Not Given Morphine Sulfate (Morphine Sulfate) 4 mg IVPUSH Q4H PRN PRN Reason: PAIN LEVEL 6-10 Last Admin: 06/20/18 10:29 Dose: 4 mg Zolpidem Tartrate (Ambien -) 5 mg PO HS PRN PRN Reason: INSOMNIA Last Admin: 06/19/18 22:21 Dose: 5 mg - Objective Vital Signs: Vital Signs Temperature 97.9 F 06/20/18 09:03 Pulse Rate 72 06/20/18 10:24 Respiratory Rate 20 06/20/18 10:24 Blood Pressure 107/72 06/20/18 10:24 O2 Sat by Pulse Oximetry (%) 96 06/19/18 21:00 Constitutional: Yes: Well Nourished, No Distress, Calm, Obese Eyes: Yes: Conjunctiva Clear, EOM Intact HENT: Yes: Atraumatic, Normocephalic Neck: Yes: Supple, Trachea Midline Cardiovascular: Yes: Regular Rate and Rhythm, S1, S2 Respiratory: Yes: Regular, CTA Bilaterally Gastrointestinal: Yes: Normal Bowel Sounds, Soft, Tenderness (lower abdoman in midline). No: Palpable Mass ...Rectal Exam: Yes: Deferred Genitourinary: No: CVA Tenderness - Left, CVA Tenderness - Right Breast(s): No: Dimpling, Mass, Nipple Inversion Musculoskeletal: No: Muscle Pain, Muscle Weakness Extremities: No: Cool, Cyanosis Edema: No Peripheral Pulses WNL: Yes Peripheral Pulses: Left Radial: 2+, Right Radial: 2+, Left Doralis Pedis: 2+, Right Dorsalis Pedis: 2+, Left Femoral: 2+, Right Femoral: 2+ Integumentary: No: Erythema, Incision Neurological: Yes: Alert, Oriented Psychiatric: Yes: Alert, Oriented Labs: CBC, BMP 06/20/18 07:30 06/20/18 07:30 INR, PTT INR 1.13 (0.83-1.09) H 06/18/18 17:56 Problem List - Problems (1) Sigmoid diverticulitis Assessment/Plan: 43 yo male with sigmoid diverticulits confirmed on imaging, first espisode uncomplicated NPO and IVF hydration IV antibiotics ID consult for home regimen GI evaluation for colonoscopy in 6-8 weeks no surgical follow up needed at this time - discussed options if persistent or recurrent will follow peripherally Code(s): K57.32 - DVTRCLI OF LG INT W/O PERFORATION OR ABSCESS W/O BLEEDING (2) Acute diverticulitis Code(s): K57.92 - DVTRCLI OF INTEST, PART UNSP, W/O PERF OR ABSCESS W/O BLEED (3) CVA (cerebral vascular accident) Code(s): I63.9 - CEREBRAL INFARCTION, UNSPECIFIED (4) HTN (hypertension) Code(s): I10 - ESSENTIAL (PRIMARY) HYPERTENSION
--- NOTE | 2018-06-20 11:54 | PN ---
Progress Note, Physician History of Present Illness: Pt w/o fever, chills. Pt still has abd pain, slightly better, no N/ V. - Current Medication List Current Medications: Active Medications Acetaminophen (Tylenol -) 650 mg PO Q6H PRN PRN Reason: FEVER/PAIN LEVEL 1-5 Metronidazole (Flagyl 500mg Premixed Ivpb -) 500 mg in 100 mls @ 100 mls/hr IVPB Q6H-IV FRAN Last Admin: 06/20/18 08:48 Dose: 100 mls/hr Dextrose/Sodium Chloride (D5-Ns -) 1,000 mls @ 100 mls/hr IV ASDIR FRAN Last Admin: 06/20/18 01:07 Dose: 100 mls/hr Ceftriaxone Sodium 2 gm/ (Dextrose) 100 mls @ 200 mls/hr IVPB DAILY [facility]; Protocol Last Admin: 06/20/18 10:29 Dose: 200 mls/hr Metoprolol Tartrate (Lopressor -) 50 mg PO BID FRAN Last Admin: 06/20/18 10:28 Dose: Not Given Morphine Sulfate (Morphine Sulfate) 4 mg IVPUSH Q4H PRN PRN Reason: PAIN LEVEL 6-10 Last Admin: 06/20/18 10:29 Dose: 4 mg Zolpidem Tartrate (Ambien -) 5 mg PO HS PRN PRN Reason: INSOMNIA Last Admin: 06/19/18 22:21 Dose: 5 mg - Objective Vital Signs: Vital Signs Temperature 97.9 F 06/20/18 09:03 Pulse Rate 72 06/20/18 10:24 Respiratory Rate 20 06/20/18 10:24 Blood Pressure 107/72 06/20/18 10:24 O2 Sat by Pulse Oximetry (%) 96 06/19/18 21:00 Constitutional: Yes: No Distress, Calm Cardiovascular: Yes: Regular Rate and Rhythm, S1, S2 Respiratory: Yes: Regular, CTA Bilaterally Gastrointestinal: Yes: Normal Bowel Sounds, Soft, Tenderness (in lower quadrans , more to right and midline). No: Palpable Mass Edema: No Neurological: Yes: Alert, Oriented Labs: CBC, BMP 06/20/18 07:30 06/20/18 07:30 INR, PTT INR 1.13 (0.83-1.09) H 06/18/18 17:56 Problem List - Problems (1) Acute diverticulitis Code(s): K57.92 - DVTRCLI OF INTEST, PART UNSP, W/O PERF OR ABSCESS W/O BLEED (2) Abdominal pain Code(s): R10.9 - UNSPECIFIED ABDOMINAL PAIN Qualifiers: Abdominal location: right lower quadrant Qualified Code(s): R10.31 - Right lower quadrant pain (3) CVA (cerebral vascular accident) Code(s): I63.9 - CEREBRAL INFARCTION, UNSPECIFIED (4) HTN (hypertension) Code(s): I10 - ESSENTIAL (PRIMARY) HYPERTENSION Assessment/Plan IV abts Pain controlled Clear liquid GI, ID, surgery consults are appreciated consult AM labs Case was d/w pt's nurse
--- NOTE | 2018-06-20 14:00 | PN ---
Progress Note (short form) - Note Progress Note: feels improved started on clears today Vital Signs Period Temp Pulse Resp BP Sys/Pino Pulse Ox Last 24 Hr 97.9 F-98.7 F 72-89 18-20 92-155/48-77 95-96 cor-rrr lungs clear abd soft,nt ext no edema CBC, BMP 06/20/18 07:30 06/20/18 07:30 Microbiology 06/18/18 20:46 Blood - Peripheral Venous Blood Culture - Preliminary NO GROWTH OBTAINED AFTER 24 HOURS, INCUBATION TO CONTINUE FOR 4 DAYS. 06/18/18 20:46 Blood - Peripheral Venous Blood Culture - Preliminary NO GROWTH OBTAINED AFTER 24 HOURS, INCUBATION TO CONTINUE FOR 4 DAYS. Laboratory Tests 06/20/18 07:30 C-Reactive Protein 12.6 H a/p 43 yo man admitted with abdominal pain and bloody stools ct scan c/w acute diverticulitis with microperforation no history of pror hospitalizations no prior antibiotics +bloody stools intermittently for last several months flagyl/ceftriaxone ivf GI following wbc improving-now normal Problem List - Problems (1) Acute diverticulitis Code(s): K57.92 - DVTRCLI OF INTEST, PART UNSP, W/O PERF OR ABSCESS W/O BLEED
[2018-06-20] MEDS: ZOLPIDEM TARTRATE 5 MG TABLET PO PRN (22:00)
[2018-06-21 07:00] LABS: HEMATOCRIT 35.1 % (35.4-49); HEMOGLOBIN 11.9 GM/dL (11.7-16.9); MCHC 33.9 g/dl (32.0-35.9); MEAN CELL VOLUME 88.3 fl (80-96); MEAN PLT VOLUME 9.4 fl (7.5-11.1); PLATELET COUNT 187 K/MM3 (134-434); RBC 3.98 M/mm3 (4.00-5.60); RDW 13.4 % (11.9-15.9); WHITE BLOOD COUNT 6.3 K/mm3 (4.0-10.0)
[2018-06-21 07:50] LABS: ALBUMIN 3.1 g/dl (3.4-5.0); ALK PHOS 44 U/L (45-117); ANION GAP 6 MMOL/L (8-16); BILIRUBIN,TOTAL 0.5 mg/dL (0.2-1); BLOOD UREA NITROGEN 12 mg/dL (7-18); CALCIUM 8.1 mg/dL (8.5-10.1); CHLORIDE 108 mmol/L (98-107); CO2 27 mmol/L (21-32); CREATININE 0.9 mg/dL (0.55-1.3); GLUCOSE,RANDOM 107 mg/dL (74-106); POTASSIUM 3.7 mmol/L (3.5-5.1); SGOT/AST 11 U/L (15-37); SGPT/ALT 16 U/L (13-61); SODIUM 141 mmol/L (136-145)
--- NOTE | 2018-06-21 10:38 | PN ---
Progress Note, Physician History of Present Illness: Pt w/o fever, chills. Pt's abd pain is better, no N/ V. Pt wants to eat some meat. - Current Medication List Current Medications: Active Medications Acetaminophen (Tylenol -) 650 mg PO Q6H PRN PRN Reason: FEVER/PAIN LEVEL 1-5 Metronidazole (Flagyl 500mg Premixed Ivpb -) 500 mg in 100 mls @ 100 mls/hr IVPB Q6H-IV FRAN Last Admin: 06/21/18 09:06 Dose: 100 mls/hr Dextrose/Sodium Chloride (D5-Ns -) 1,000 mls @ 100 mls/hr IV ASDIR FRAN Last Admin: 06/20/18 14:34 Dose: 100 mls/hr Ceftriaxone Sodium 2 gm/ (Dextrose) 100 mls @ 200 mls/hr IVPB DAILY [facility]; Protocol Last Admin: 06/20/18 10:29 Dose: 200 mls/hr Metoprolol Tartrate (Lopressor -) 50 mg PO BID FRAN Last Admin: 06/20/18 21:22 Dose: 50 mg Morphine Sulfate (Morphine Sulfate) 4 mg IVPUSH Q4H PRN PRN Reason: PAIN LEVEL 6-10 Last Admin: 06/20/18 22:00 Dose: 4 mg Zolpidem Tartrate (Ambien -) 5 mg PO HS PRN PRN Reason: INSOMNIA Last Admin: 06/20/18 22:00 Dose: 5 mg - Objective Vital Signs: Vital Signs Temperature 98.2 F 06/20/18 18:00 Pulse Rate 87 06/20/18 18:00 Respiratory Rate 20 06/20/18 18:00 Blood Pressure 129/75 06/20/18 18:00 O2 Sat by Pulse Oximetry (%) 95 06/20/18 20:23 Constitutional: Yes: No Distress, Calm Cardiovascular: Yes: Regular Rate and Rhythm, S1, S2 Respiratory: Yes: Regular, CTA Bilaterally Gastrointestinal: Yes: Normal Bowel Sounds, Soft, Tenderness (minimal in lower abd). No: Tenderness, Rebound Edema: No Neurological: Yes: Alert, Oriented Labs: CBC, BMP 06/21/18 06:10 06/21/18 06:10 INR, PTT INR 1.13 (0.83-1.09) H 06/18/18 17:56 Problem List - Problems (1) Acute diverticulitis Code(s): K57.92 - DVTRCLI OF INTEST, PART UNSP, W/O PERF OR ABSCESS W/O BLEED (2) Abdominal pain Code(s): R10.9 - UNSPECIFIED ABDOMINAL PAIN Qualifiers: Abdominal location: right lower quadrant Qualified Code(s): R10.31 - Right lower quadrant pain (3) CVA (cerebral vascular accident) Code(s): I63.9 - CEREBRAL INFARCTION, UNSPECIFIED (4) HTN (hypertension) Code(s): I10 - ESSENTIAL (PRIMARY) HYPERTENSION Assessment/Plan IV abtx Pain controlled Advance diet to full liquid GI, ID, surgery consults are appreciated consult AM labs Case was d/w pt's nurse
[2018-06-21] MEDS ORDERED: DEXTROSE 5%-WATER 100 ML IVPB ONE (10:52)
[2018-06-21] MEDS: CEFTRIAXONE 2 GM in DEXTROSE 5%-WATER 100 ML IVPB SCH (10:56)
[2018-06-21] MEDS ORDERED: PT OWN MED DRAWER 7, Y5N ONE (10:59)
[2018-06-21] MEDS: METOPROLOL TARTRATE 50 MG TABLET (FP) PO SCH ×2 (11:00→22:05)
--- NOTE | 2018-06-21 13:21 | PN ---
Progress Note, Physician History of Present Illness: 43 yo male PMH obesity, palpitations?, HLD who presents to the emergency department with, 3 days of suprapubic pain now radiating to the RLQ with fever. stable since admission and abdominal pain is improved. - Current Medication List Current Medications: Active Medications Acetaminophen (Tylenol -) 650 mg PO Q6H PRN PRN Reason: FEVER/PAIN LEVEL 1-5 Metronidazole (Flagyl 500mg Premixed Ivpb -) 500 mg in 100 mls @ 100 mls/hr IVPB Q6H-IV FRAN Last Admin: 06/21/18 09:06 Dose: 100 mls/hr Dextrose/Sodium Chloride (D5-Ns -) 1,000 mls @ 100 mls/hr IV ASDIR FRAN Last Admin: 06/20/18 14:34 Dose: 100 mls/hr Ceftriaxone Sodium 2 gm/ (Dextrose) 100 mls @ 200 mls/hr IVPB DAILY [facility]; Protocol Last Admin: 06/21/18 10:56 Dose: 200 mls/hr Metoprolol Tartrate (Lopressor -) 50 mg PO BID FRAN Last Admin: 06/21/18 11:00 Dose: 50 mg Morphine Sulfate (Morphine Sulfate) 4 mg IVPUSH Q4H PRN PRN Reason: PAIN LEVEL 6-10 Last Admin: 06/20/18 22:00 Dose: 4 mg Zolpidem Tartrate (Ambien -) 5 mg PO HS PRN PRN Reason: INSOMNIA Last Admin: 06/20/18 22:00 Dose: 5 mg - Objective Vital Signs: Vital Signs Temperature 97.9 F 06/21/18 10:53 Pulse Rate 79 06/21/18 10:53 Respiratory Rate 20 06/21/18 10:53 Blood Pressure 118/62 06/21/18 10:53 O2 Sat by Pulse Oximetry (%) 95 06/20/18 20:23 Constitutional: Yes: Well Nourished, No Distress, Calm Eyes: Yes: Conjunctiva Clear, EOM Intact HENT: Yes: Atraumatic, Normocephalic Neck: Yes: Supple, Trachea Midline Cardiovascular: Yes: Regular Rate and Rhythm, S1, S2 Respiratory: Yes: Regular, CTA Bilaterally Gastrointestinal: Yes: Normal Bowel Sounds, Soft, Abdomen, Obese, Tenderness ( minimal in comparison) ...Rectal Exam: Yes: Deferred Genitourinary: No: CVA Tenderness - Left, CVA Tenderness - Right Breast(s): No: Breast Implants, Discharge from Nipple, Nipple Inversion Musculoskeletal: No: Muscle Pain, Muscle Weakness Extremities: No: Cool, Cyanosis Edema: No Peripheral Pulses WNL: Yes Peripheral Pulses: Left Radial: 2+, Right Radial: 2+, Left Doralis Pedis: 2+, Right Dorsalis Pedis: 2+, Left Femoral: 2+, Right Femoral: 2+ Integumentary: No: Jaundice, Tenting Neurological: Yes: Alert, Oriented Psychiatric: Yes: Alert, Oriented Labs: CBC, BMP 06/21/18 06:10 06/21/18 06:10 INR, PTT INR 1.13 (0.83-1.09) H 06/18/18 17:56 Problem List - Problems (1) Sigmoid diverticulitis Assessment/Plan: 43 yo male with sigmoid diverticulits confirmed on imaging, first espisode uncomplicated Advance diet to regular antibiotics per ID for home regimen GI evaluation for colonoscopy in 6-8 weeks no surgical follow up needed at this time - discussed options if persistent or recurrent will follow peripherally Code(s): K57.32 - DVTRCLI OF LG INT W/O PERFORATION OR ABSCESS W/O BLEEDING (2) Acute diverticulitis Code(s): K57.92 - DVTRCLI OF INTEST, PART UNSP, W/O PERF OR ABSCESS W/O BLEED (3) CVA (cerebral vascular accident) Code(s): I63.9 - CEREBRAL INFARCTION, UNSPECIFIED (4) HTN (hypertension) Code(s): I10 - ESSENTIAL (PRIMARY) HYPERTENSION
[2018-06-21] MEDS: DEXTROSE 5%-NORMAL SALINE 1,000 ML IV SCH (19:06)
[2018-06-21] MEDS: ZOLPIDEM TARTRATE 5 MG TABLET PO PRN (23:17)
[2018-06-22 06:55] LABS: HEMATOCRIT 36.3 % (35.4-49); HEMOGLOBIN 12.4 GM/dL (11.7-16.9); MEAN CELL VOLUME 88.1 fl (80-96); MEAN PLT VOLUME 9.8 fl (7.5-11.1); PLATELET COUNT 204 K/MM3 (134-434); RBC 4.12 M/mm3 (4.00-5.60); RDW 13.4 % (11.9-15.9); WHITE BLOOD COUNT 7.5 K/mm3 (4.0-10.0)
[2018-06-22 07:15] LABS: ALBUMIN 3.2 g/dl (3.4-5.0); ALK PHOS 50 U/L (45-117); ANION GAP 5 MMOL/L (8-16); BILIRUBIN,TOTAL 0.5 mg/dL (0.2-1); BLOOD UREA NITROGEN 8 mg/dL (7-18); CALCIUM 8.4 mg/dL (8.5-10.1); CHLORIDE 106 mmol/L (98-107); CO2 28 mmol/L (21-32); CREATININE 0.8 mg/dL (0.55-1.3); GLUCOSE,RANDOM 101 mg/dL (74-106); POTASSIUM 3.7 mmol/L (3.5-5.1); SGOT/AST 21 U/L (15-37); SGPT/ALT 26 U/L (13-61); SODIUM 139 mmol/L (136-145); TOT PROT 6.4 g/dl (6.4-8.2)
[2018-06-22] MEDS ORDERED: DEXTROSE 5%-WATER 100 ML IVPB ONE (10:19)
[2018-06-22] MEDS: METOPROLOL TARTRATE 50 MG TABLET (FP) PO SCH (10:25)
[2018-06-22] MEDS: CEFTRIAXONE 2 GM in DEXTROSE 5%-WATER 100 ML IVPB SCH (10:25)
[2018-06-22] MEDS: DEXTROSE 5%-NORMAL SALINE 1,000 ML IV SCH ×2 (10:29→12:59)
--- NOTE | 2018-06-22 14:07 | PN ---
Progress Note (short form) - Note Progress Note: no fevers no pain meds full liquid diet Vital Signs Period Temp Pulse Resp BP Sys/Pino Pulse Ox Last 24 Hr 97.6 F-98.3 F 81-97 20-20 114-135/64-87 96 cor-rrr lungs decreased bs at bases abd soft,nt ext no edema CBC, BMP 06/22/18 06:00 06/22/18 06:00 Laboratory Tests 06/20/18 06/22/18 07:30 06:00 C-Reactive Protein 12.6 H 6.3 H Microbiology 06/18/18 20:46 Blood - Peripheral Venous Blood Culture - Preliminary NO GROWTH OBTAINED AFTER 72 HOURS, INCUBATION TO CONTINUE FOR 2 DAYS. 06/18/18 20:46 Blood - Peripheral Venous Blood Culture - Preliminary NO GROWTH OBTAINED AFTER 72 HOURS, INCUBATION TO CONTINUE FOR 2 DAYS. a/p 43 yo man admitted with abdominal pain and bloody stools ct scan c/w acute diverticulitis with microperforation day #4 rocephin/flagyl awaiting GI f/u can switch to po levaquin/flagyl when ready fow discharge d/w dr marroquin Problem List - Problems (1) Acute diverticulitis Code(s): K57.92 - DVTRCLI OF INTEST, PART UNSP, W/O PERF OR ABSCESS W/O BLEED
[2018-06-22 15:07] VITALS: BP 144/83; PULSE 85; TEMP 98.6
--- NOTE | 2018-06-22 16:34 | PN ---
Progress Note (short form) - Note Progress Note: Patient seen and examined labs reviewed Ate a sandwich today. Denies abdominal pain. Temp 98.6 F 06/22/18 14:55 Pulse 85 06/22/18 14:55 Resp 18 06/22/18 14:55 BP 144/83 06/22/18 14:55 Pulse Ox 96 06/21/18 21:00 NAD soft NT ND CBC, BMP 06/22/18 06:00 06/22/18 06:00 Acute diverticulitis with microperforation - improved on antibiotics To transition to PO abx and complete course Advised patient to follow up with outpatient GI for colonoscopy in 6-8 weeks
--- NOTE | 2018-06-22 17:04 | DS ---
Physical Examination Vital Signs: Vital Signs Temperature 98.6 F 06/22/18 14:55 Pulse Rate 85 06/22/18 14:55 Respiratory Rate 18 06/22/18 14:55 Blood Pressure 144/83 06/22/18 14:55 O2 Sat by Pulse Oximetry (%) 96 06/21/18 21:00 Findings/Remarks: Pt tolerated PO intake w/o abd pain, nausea, vomiting, blood in stool. Pt w/o fever, chills; no SOB, cough, CP, palpitations, dizziness. Constitutional: Yes: No Distress, Calm Cardiovascular: Yes: Regular Rate and Rhythm, S1, S2 Respiratory: Yes: Regular, CTA Bilaterally Gastrointestinal: Yes: Normal Bowel Sounds, Soft. No: Tenderness Edema: No Neurological: Yes: Alert, Oriented Labs: CBC, BMP 06/22/18 06:00 06/22/18 06:00 Discharge Summary Reason For Visit: ABDOMINAL PAIN Current Active Problems Acute diverticulitis (Acute) CVA (cerebral vascular accident) (Acute) HTN (hypertension) (Acute) Sigmoid diverticulitis (Acute) Procedures: Principal: Abd/ Pelvis CT scan Hospital Course: Pt came to ER c/o abd pain, fever, leukocytosis. On Abd/ Pelvis CTscan itwas noticed to have acute sigmoid diverticulitis with microperforation. Pt was admitted, started on IV abtx; [t was seen by GI (Dr. Geoff Valdovinos), ID (Dr. Stanton), Sx (Dr. Yoav Rees). Pt improved with treatment, started to tolerate PO intake. Pt to be DC home with PO abtx and outpatient f/u with my office, GI. Condition: Improved - Instructions Diet, Activity, Other Instructions: Resume diet gradually. Can return to work or Friday if better. Disposition: HOME - Home Medications Comprehensive Discharge Medication List: Ambulatory Orders Ezetimibe [Zetia] 10 mg PO DAILY 06/19/18 Metoprolol Tartrate 75 mg PO DAILY 06/19/18
== END 2018-06-22 18:15 | disposition home or self-care (01) | DRG 392 ==
LOC: JER 16:24 → JERBED 20:53 → J5S 23:47
PROVIDERS: ADMIT Internal Medicine; ATTEND Internal Medicine
DX: K57.20 Diverticulitis of large intestine with perforation and abscess without bleeding (principal); E78.5 Hyperlipidemia, unspecified; I10 Essential (primary) hypertension; E66.9 Obesity, unspecified; Z68.31 Body mass index [BMI] 31.0-31.9, adult
CPT/HCPCS: 36415; 74177-TC; 80053; 81003; 83690; 85025; 85027; 85610; 86140; 86850; 86900; 86901; 87040; 87086; 93005; 93010; 99284-25; J0131; J7030

== ENCOUNTER 2018-08-25 08:06 | Day surgery (SDC) | payer OTHER ==
[2018-08-24 09:22] VITALS: BMI 30.8
[2018-08-25] MEDS ORDERED: EPINEPHrine 1:10,000 (P-F SYR) 1 MG/10 ML DISP.SYRIN IVPUSH ONE (09:18)
[2018-08-25] MEDS ORDERED: EPINEPHrine 1:10,000 (P-F SYR) 1 MG/10 ML DISP.SYRIN ONE (09:37)
[2018-08-25 09:39] VITALS: TEMP 97.9
[2018-08-25 10:14] VITALS: PULSE 78
[2018-08-25 10:27] VITALS: BP 115/83
--- NOTE | 2018-08-26 15:40 | PATH ---
Surgical Pathology Report Patient Name: MAR WEIR [facility]. Rec. #: [id number] /Age/Gender: 1975 (Age: 43) / M Account: [id number] Location: U-ENDOSCOPY Taken: 08/25/2018 Received: 08/25/2018 Reported: 08/31/2018 Physicians: Dank Abdi D.O. Specimen(s) Received A: TRANSVERSE COLON POLYP B: DESCENDING COLON POLYP C: SIGMOID COLON D: POLYP SIGMOID E: POLYP SIGMOID AT 25 CM F: RECTAL POLYP Clinical History Follow-up diverticulitis Postoperative diagnosis: Diverticulosis, colon polyps, internal hemorrhoids Final Diagnosis A. TRANSVERSE COLON, POLYP, BIOPSY: HYPERPLASTIC POLYP. B. DESCENDING COLON, POLYP, BIOPSY: HYPERPLASTIC POLYP. C. SIGMOID COLON, BIOPSY: COLONIC MUCOSA SHOWING SURFACE HYPERPLASTIC CHANGE AND BENIGN/REACTIVE LYMPHOID AGGREGATE. D. SIGMOID COLON, POLYP, BIOPSY: HYPERPLASTIC POLYP. E. SIGMOID COLON, POLYP, AT 25 CM, POLYPECTOMY: SESSILE SERRATED POLYP. (SEE NOTE) Note: Case re-reviewed with intradepartmental consensus on diagnosis. Case discussed with Dr.Christopher Abdi on 08/31/18. F. RECTAL POLYP, BIOPSY: HYPERPLASTIC POLYP. Electronically Signed By Deysi Encinas M.D. Jacqui Cisse M.D. Amendments Amended: 08/31/2018 Previous Signout Date: 08/26/2018 Comment: To change diagnosis in part E (sigmoid colon polyp at 25 cm) Gross Description A. Received in formalin, labeled "biopsy transverse colon" are 2 bronson, irregular portions of soft tissue averaging 0.2 cm. in greatest dimension. The specimens are submitted in toto in one cassette. B. Received in formalin, labeled "biopsy descending colon polyp" is a bronson, irregular portion of soft tissue measuring 0.3 cm. in greatest dimension. The specimen is submitted in toto in one cassette. C. Received in formalin, labeled "biopsy sigmoid colon" are 4 bronson, irregular portions of soft tissue ranging from 0.2-0.3 cm. in greatest dimension. The specimens are submitted in toto in one cassette. D. Received in formalin, labeled "biopsy sigmoid polyp" is a bronson, irregular portion of soft tissue measuring 0.3 cm. in greatest dimension. The specimen is submitted in toto in one cassette. E. Received in formalin labeled "sigmoid polyp at 25 cm," is a 1.8 x 1.0 x 0.6 cm brown, polypoid portion of soft tissue. The specimen is bisected and entirely submitted in one cassette. F. Received in formalin, labeled "biopsy rectal polyp" is a bronson, irregular portion of soft tissue measuring 0.3 cm. in greatest dimension. The specimen is submitted in toto in one cassette. 08/25/2018 [facility]08/25/2018
== END 2018-08-25 10:23 | disposition home or self-care (01) ==
LOC: JASU-ENDO 08:06
PROVIDERS: ATTEND Internal Medicine Gastroenterology
PROC: 3E0H8GC Introduction of Other Therapeutic Substance into Lower GI, Via Natural or Artificial Opening Endoscopic (ICD-10-PCS; 2018-08-25)
PROC: 0DBM8ZX Excision of Descending Colon, Via Natural or Artificial Opening Endoscopic, Diagnostic (ICD-10-PCS; 2018-08-25)
PROC: 0DBL8ZX Excision of Transverse Colon, Via Natural or Artificial Opening Endoscopic, Diagnostic (ICD-10-PCS; 2018-08-25)
PROC: 0DBP8ZX Excision of Rectum, Via Natural or Artificial Opening Endoscopic, Diagnostic (ICD-10-PCS; principal; 2018-08-25 09:30)
DX: K57.30 Diverticulosis of large intestine without perforation or abscess without bleeding (principal); K62.1 Rectal polyp; K64.8 Other hemorrhoids; D12.5 Benign neoplasm of sigmoid colon; D12.3 Benign neoplasm of transverse colon
CPT/HCPCS: 88305-TC

== ENCOUNTER 2022-02-19 05:02 | Day surgery (SDC) | payer OTHER ==
[2022-02-18 09:22] VITALS: BMI 28.2
[2022-02-19 15:16] VITALS: TEMP 98
[2022-02-19 15:30] VITALS: PULSE 77; RESP 18
[2022-02-19 15:33] VITALS: BP 113/70
== END 2022-02-19 16:06 | disposition home or self-care (01) ==
LOC: JASU-ENDO 05:02
PROVIDERS: ATTEND Internal Medicine Gastroenterology
PROC: 0DBN8ZX Excision of Sigmoid Colon, Via Natural or Artificial Opening Endoscopic, Diagnostic (ICD-10-PCS; principal; 2022-02-19 13:00)
DX: Z12.11 Encounter for screening for malignant neoplasm of colon (principal); D12.7 Benign neoplasm of rectosigmoid junction; K57.30 Diverticulosis of large intestine without perforation or abscess without bleeding; K64.8 Other hemorrhoids; Z86.010 Personal history of colon polyps
CPT/HCPCS: 88305-TC